=== PATIENT | male | born 1935 | race Caucasian/White ===

== ENCOUNTER 2016-10-22 06:14 | Day surgery (SDC) | payer OTHER ==
[2016-10-19 17:08] LABS: Urine Bilirubin Negative (Negative); Urine Blood Negative /uL (Negative); Urine Color Yellow (Yellow); Urine Glucose Normal (Normal); Urine Ketone Negative (Negative); Urine Nitrite Negative (Negative); Urine RBC 4 /hpf (0 - 3); Urine Squamous Epithelial Cell FEW /hpf (<5); Urine Urobilinogen Normal (Negative)
[2016-10-19 17:12] LABS: BUN/Creatinine Ratio 23.2; Calcium 8.8 mg/dL (8.5-10.1); Potassium 5.2 mmol/L (3.5-5.1)
[2016-10-19 17:15] LABS: Basophils # (auto) 0 uL; Basophils % (auto) 0.5 % (0.0-2.0); Eosinophils # (auto) 0.1 uL; Eosinophils % (auto) 1.6 % (0.0-7.0); Hematocrit 45.2 % (41.0-53.0); Hemoglobin 14.9 g/dL (13.5-17.5); Lymphocytes # (auto) 1.9 uL; Lymphocytes % (auto) 25.3 % (10.0-50.0); Mean Corpuscular Hemoglobin 29.9 pg (28.0-32.0); Mean Corpuscular Hgb Conc. 32.9 g/dL (32.0-36.0); Mean Platelet Volume 9.3 fL (7.4-10.4); Monocytes # (auto) 1.1 uL; Monocytes % (auto) 15.3 % (0.0-12.0); Neutrophils # (auto) 4.3 uL; Neutrophils % (auto) 57.3 % (37.0-80.0); Platelet Count (auto) 200 10^3/uL (140-450); Red Cell Distribution Width 16.7 % (11.6-16.0); White Blood Cell 7.5 10^3/uL (4.4-10.8)
[2016-10-19 17:21] LABS: Partial Thromboplastin Time 30.9 sec (22.64-33.71)
[2016-10-19 17:25] LABS: INR 1.23 (0.9-1.15); Prothrombin Time 13.4 sec (9.37-12.3)
[~2016-10-22] VITALS: Ht 170.2 cm; Wt 63.5 kg
[~2016-10-22 06:14] MED LIST: ALBUAER3 IN; AMIO200T33 PO; AMLO5TAB2 PO; CARV3.1240 PO; MULT-195 OR; TIOTCAP INH; WARF2TAB49 PO
[2016-10-22] MEDS ORDERED: ceFAZolin 1GM/50ML D5W 50 ML IV ONE (06:22)
[2016-10-22] MEDS ORDERED: LIDOCAINE 2% JELLY 11ml (GLYDO) ONE (07:03)
[2016-10-22] MEDS ORDERED: FUROSEMIDE 20 MG/2 ML VIAL IV ONE (07:18)
[2016-10-22] MEDS ORDERED: PROPOFOL 10 MG/ML 20 ML IV ONE (07:30)
[2016-10-22] MEDS ORDERED: fentaNYL CITRATE 100 MCG/2 ML VL ONE (07:30)
[2016-10-22] MEDS ORDERED: DEXAMETHASONE SOD PHOS 10MG/1ML VIAL INJ ONE (07:30)
[2016-10-22] MEDS ORDERED: MIDAZOLAM HCL 1MG/1ML-2 ML VIAL ONE (07:30)
[2016-10-22] MEDS ORDERED: MEPERIDINE HCL (50 MG/ML) 1 ML VIAL ONE (07:31)
[2016-10-22] MEDS ORDERED: hydrALAZINE HCL 20 MG/ML VL IV PRN (08:15)
[2016-10-22] MEDS ORDERED: MIDAZOLAM HCL 1MG/1ML-2 ML VIAL IV PRN (08:15)
[2016-10-22] MEDS ORDERED: ePHEDrine SULFATE 50 MG/ML AMP IV PRN (08:15)
[2016-10-22] MEDS ORDERED: KETOROLAC TROMETH 30 MG/ML 1ML VIAL IV ONE (08:15)
[2016-10-22] MEDS ORDERED: ONDANSETRON HCL 4 MG/2 ML VIAL IV ONE (08:15)
[2016-10-22] MEDS ORDERED: MORPHINE SULF INJ 2 MG/ML SYRINGE 1ML IV PRN (08:15)
[2016-10-22] MEDS ORDERED: LABETALOL HCL 5 MG/ML 4ML SYRINGE IV PRN (08:15)
[2016-10-22] MEDS ORDERED: HYDROmorphone HCL 2 MG/ML VL IV PRN (08:15)
[2016-10-22 09:22] VITALS: BP 164/80
== END 2016-10-22 09:22 | disposition home or self-care (01) ==
LOC: SUR 06:14
PROVIDERS: ATTEND Urology
DX: C67.9 Malignant neoplasm of bladder, unspecified (principal); Z87.891 Personal history of nicotine dependence; Z90.49 Acquired absence of other specified parts of digestive tract; Z90.3 Acquired absence of stomach [part of]
CPT/HCPCS: 36415; 52240; 80048; 81001; 85025; 85610; 85730; 87086; 88307; J0690; J1100; J1940; J2175; J2250; J2704; J3010

== ENCOUNTER 2018-01-13 08:14 | Day surgery (SDC) | payer OTHER ==
[2018-01-07 13:23] LABS: Basophils # (auto) 0 uL; Eosinophils # (auto) 0.1 uL; Eosinophils % (auto) 1.7 % (0.0-7.0); Neutrophils # (auto) 3.9 uL
[2018-01-07 13:26] LABS: Urine Bacteria NONE SEEN /hpf (None Seen); Urine Blood Negative /uL (Negative); Urine Specific Gravity 1.017 (1.001-1.035); Urine WBC 9 /hpf (0 - 3)
[2018-01-07 13:28] LABS: Basophils % (auto) 0.5 % (0.0-2.0); Hematocrit 43.9 % (41.0-53.0); Hemoglobin 14.8 g/dL (13.5-17.5); Lymphocytes # (auto) 1.4 uL; Mean Corpuscular Hemoglobin 30.4 pg (28.0-32.0); Mean Corpuscular Hgb Conc. 33.6 g/dL (32.0-36.0); Mean Corpuscular Volume 90.6 fL (80.0-100.0); Monocytes # (auto) 0.9 uL; Neutrophils % (auto) 61.8 % (37.0-80.0); Nucleated Red Blood Cells % 0.1 %; Platelet Count (auto) 151 10^3/uL (140-450); Red Blood Cells 4.85 10^6/uL (4.5-5.90); Red Cell Distribution Width 15.6 % (11.8-14.3); White Blood Cell 6.3 10^3/uL (4.4-10.8)
[2018-01-07 13:38] LABS: Calcium 8.3 mg/dL (8.5-10.1); Potassium 4.1 mmol/L (3.5-5.1)
[2018-01-07 13:40] LABS: INR 2.69 (0.9-1.15); Prothrombin Time 27.2 sec (9.27-12.13)
[~2018-01-13] VITALS: Ht 170.2 cm; Wt 63.5 kg
[~2018-01-13 08:14] MED LIST changes: -AMIO200T33 PO; +AMLO5TAB13 PO; -AMLO5TAB2 PO; -CARV3.1240 PO; +FINA5TAB4 PO; +SOTA80TA PO; +TAMS0.4C36 PO
[2018-01-13] MEDS ORDERED: ceFAZolin 1GM/50ML 50 ML IV ONE (10:16)
[2018-01-13] MEDS ORDERED: fentaNYL CITRATE 100 MCG/2 ML VL ONE (10:25)
[2018-01-13 10:34] LABS: INR 1.13 (0.9-1.15); Partial Thromboplastin Time 31.4 sec (23.78-33.04)
[2018-01-13] MEDS ORDERED: ePHEDrine SULFATE 50 MG/ML AMP IV PRN (11:15)
[2018-01-13] MEDS ORDERED: ONDANSETRON HCL 4 MG/2 ML VIAL IV ONE (11:15)
[2018-01-13] MEDS ORDERED: hydrALAZINE HCL 20 MG/ML VL IV PRN (11:15)
[2018-01-13] MEDS ORDERED: FUROSEMIDE 20 MG/2 ML VIAL IV ONE ×2 (11:30→11:35)
[2018-01-13] MEDS ORDERED: FUROSEMIDE 20 MG/2 ML VIAL ONE (11:30)
[2018-01-13] MEDS ORDERED: HYOSCYAMINE SULF 0.125 MG TAB PO ONE ×2 (11:30→11:41)
[2018-01-13] MEDS ORDERED: fentaNYL CITRATE 100 MCG/2 ML VL IV ONE (12:00)
[2018-01-13 12:20] VITALS: BP 160/101
== END 2018-01-13 12:20 | disposition home or self-care (01) ==
LOC: SUR 08:14
PROVIDERS: ATTEND Urology
DX: C67.9 Malignant neoplasm of bladder, unspecified (principal); J44.9 Chronic obstructive pulmonary disease, unspecified; I48.91 Unspecified atrial fibrillation; I10 Essential (primary) hypertension; I25.10 Atherosclerotic heart disease of native coronary artery without angina pectoris; I11.9 Hypertensive heart disease without heart failure; Z98.49 Cataract extraction status, unspecified eye; Z87.891 Personal history of nicotine dependence; Z79.01 Long term (current) use of anticoagulants; Z79.899 Other long term (current) drug therapy; Z90.49 Acquired absence of other specified parts of digestive tract; Z98.890 Other specified postprocedural states; Z79.2 Long term (current) use of antibiotics
CPT/HCPCS: 36415; 52204; 52240; 80048; 81001; 85025; 85610; 85730; 87086; J0690; J1940; J3010

== ENCOUNTER 2019-08-17 14:53 | Inpatient (IN) | payer OTHER ==
[~2019-08-17] VITALS: Ht 170.2 cm; Wt 62.0 kg
[~2019-08-17 14:53] MED LIST changes: -AMLO5TAB13 PO; +AMLO5TAB15 PO; +DEXT1SYP9 PO; +IPR002IS NEB; +LEVO500T21 PO; +PRED20TA2 PO; +THEO400T PO; +WARF1TAB36 PO
[2019-08-17 15:59] LABS: Anion Gap 7 (5-15); Basophils # (auto) 0.1 10 ^3/uL (0-0.2); Basophils % (auto) 0.9 % (0.0-2.0); Blood Urea Nitrogen 11 mg/dL (7-18); Calcium 9.2 mg/dL (8.5-10.1); Carbon Dioxide 30 mmol/L (21-32); Chloride 104 mmol/L (98-107); Eosinophils # (auto) 0.1 10 ^3/uL (0-0.8); Eosinophils % (auto) 1.7 % (0.0-7.0); Glucose 113 mg/dL (74-106); Hematocrit 44.9 % (41.0-53.0); Hemoglobin 15.1 g/dL (13.5-17.5); Lymphocytes % (auto) 11.5 % (10.0-50.0); Mean Corpuscular Hemoglobin 30.2 pg (28.0-32.0); Mean Corpuscular Hgb Conc. 33.5 g/dL (32.0-36.0); Mean Corpuscular Volume 90.3 fL (80.0-100.0); Monocytes # (auto) 0.9 10 ^3/uL (0-1.3); Monocytes % (auto) 10.4 % (0.0-12.0); Neutrophils # (auto) 6.5 10 ^3/uL (1.6-8.6); Neutrophils % (auto) 75.5 % (37.0-80.0); Nucleated Red Blood Cells % 0.1 %; Platelet Count (auto) 158 10^3/uL (140-450); Potassium 4.1 mmol/L (3.5-5.1); Red Blood Cells 4.98 10^6/uL (4.5-5.90); Red Cell Distribution Width 15.7 % (11.8-14.3); Sodium 141 mmol/L (136-145); White Blood Cell 8.6 10^3/uL (4.4-10.8)
[2019-08-17 16:04] LABS: Alanine Aminotransferase 31 U/L (16-61); Alkaline Phosphatase 107 U/L (45-117); Aspartate Aminotransferase 27 U/L (15-37); BUN/Creatinine Ratio 9.2; Bilirubin, Total 0.5 mg/dL (0.2-1.0); GFR African American 75 mL/min; GFR Non-African American 62 mL/min; Total Protein 8.3 g/dL (6.4-8.2)
[2019-08-17] MEDS ORDERED: SOTA80TA20 PO (16:22)
[2019-08-17] MEDS ORDERED: DIGO0.25 PO (16:22)
[2019-08-17] MEDS ORDERED: MORPHINE SULF INJ 2 MG/ML SYRINGE 1ML IV PRN (17:45)
[2019-08-17] MEDS ORDERED: NITROGLYCERIN 0.4 MG SL TAB SL PRN (17:45)
[2019-08-17] MEDS ORDERED: FUROSEMIDE 20 MG/2 ML VIAL IV ONE (17:45)
[2019-08-17] MEDS: ALBUTEROL SULF 2.5 MG/0.5ML(0.5%) NEB SOLN NEB SCH (18:00)
[2019-08-17] MEDS: IPRATROPIUM BROM 0.5 MG/2.5ML INH SOL NEB SCH (18:00)
[2019-08-17 19:26] LABS: INR 1.6 (0.9-1.15); Partial Thromboplastin Time 35.9 sec (23.64-32.05)
[2019-08-17] MEDS ORDERED: WARFARIN SODIUM 1 MG TAB PO ONE (19:45)
[2019-08-17 20:15] VITALS: BP 151/84
[2019-08-17] MEDS ORDERED: methylPREDNISolone SOD SUCC 125 MG/2 ML VL IV ONE (20:15)
[2019-08-17] MEDS: THEOPHYLLINE 80 MG/15ml ORAL Elixir PO SCH (22:00)
[2019-08-17 22:09] VITALS: BP 171/113
[2019-08-17] MEDS: SOTALOL HCL 80 MG TAB PO SCH (22:13)
[2019-08-17] MEDS ORDERED: SOTA120T39 PO (23:14)
[2019-08-17] MEDS ORDERED: WARF2TAB49 PO (23:17)
[2019-08-17] MEDS ORDERED: WARF3TAB22 PO (23:17)
[2019-08-18 05:00] VITALS: BP 140/86
[2019-08-18] MEDS: ALBUTEROL SULF 2.5 MG/0.5ML(0.5%) NEB SOLN NEB SCH ×2 (06:17→13:04)
[2019-08-18] MEDS: IPRATROPIUM BROM 0.5 MG/2.5ML INH SOL NEB SCH ×2 (06:17→13:04)
[2019-08-18 06:47] LABS: INR 1.68 (0.9-1.15); Partial Thromboplastin Time 36.2 sec (23.64-32.05)
[2019-08-18 09:00] VITALS: BP 134/86
[2019-08-18] MEDS: THEOPHYLLINE 80 MG/15ml ORAL Elixir PO SCH (09:48)
[2019-08-18] MEDS: SOTALOL HCL 80 MG TAB PO SCH (09:48)
[2019-08-18] MEDS ORDERED: methylPREDNISolone SOD SUCC 40 MG/ML VL IV SCH (10:00)
[2019-08-18] MEDS ORDERED: FUROSEMIDE 20 MG/2 ML VIAL IV SCH (10:00)
[2019-08-18] MEDS ORDERED: levoFLOXacin 500MG 100 ML IV SCH (10:00)
[2019-08-18] MEDS ORDERED: amLODIPine BESYLATE 5 MG TAB PO SCH (10:00)
[2019-08-18] MEDS ORDERED: FERR-7 PO (10:32)
[2019-08-18] MEDS ORDERED: WARF3TAB22 PO ×2 (10:32)
[2019-08-18] MEDS ORDERED: WARF2TAB49 PO (10:32)
[2019-08-18] MEDS ORDERED: TIOT1AER IN (10:32)
[2019-08-18] MEDS ORDERED: MULTTAB PO (10:34)
[2019-08-18] MEDS ORDERED: MULT-195 PO (10:34)
[2019-08-18] MEDS ORDERED: LEVO500T21 PO (12:29)
[2019-08-18] MEDS ORDERED: FURO1TAB33 PO (12:29)
[2019-08-18] MEDS ORDERED: PRED20TA2 PO (12:29)
[2019-08-18 13:00] VITALS: BP 143/95
[2019-08-18] MEDS ORDERED: OPTISON 3ml Vial for INJ IV ONE (14:55)
[2019-08-18 16:45] VITALS: BP 147/68
[2019-08-18] MEDS ORDERED: WARFARIN SODIUM 2 MG TAB PO ONE (17:00)
[2019-08-19] MEDS ORDERED: DIGOXIN 0.25 MG TAB PO SCH (10:00)
== END 2019-08-18 17:30 | disposition home health service (06) | DRG 200 ==
LOC: ER 14:55 → TELE 14:56 → TELE-WESTW 20:46
PROVIDERS: ADMIT Internal Medicine; ATTEND Internal Medicine
DX: J93.9 Pneumothorax, unspecified (principal); J96.11 Chronic respiratory failure with hypoxia; J98.11 Atelectasis; J91.8 Pleural effusion in other conditions classified elsewhere; J43.2 Centrilobular emphysema; I11.0 Hypertensive heart disease with heart failure; I50.9 Heart failure, unspecified; I48.0 Paroxysmal atrial fibrillation; I25.10 Atherosclerotic heart disease of native coronary artery without angina pectoris; Z98.61 Coronary angioplasty status; Z99.81 Dependence on supplemental oxygen; Z79.899 Other long term (current) drug therapy
CPT/HCPCS: 36415; 71046; 71250; 76604; 80053; 83880; 84484; 85025; 85610; 85730; 87081; 93005; 93306; 94640; 99291; G0378; J1956; Q9956